=== PATIENT | female | born 1935 | race Caucasian/White ===

== ENCOUNTER → 2017-09-30 | Outpatient (CLI) | payer MEDICARE ==
[~2017-09-30] MED LIST: ASCO500 PO; ATEN25 PO; ATEN50; CHOL10002 PO; CIPR500 PO; CYAN1000 PO; ESTR.625; IBUP600 PO; INDO50 PO; LEVSOD175 PO; LEVSOD75; MULVITMINF PO; Norco 5-325 Ta1 EACH PO; OXYACE5T PO; PRED20 PO; QUIN10; QUIN10 PO; SPIHYD; SPIHYD PO
== END | disposition home or self-care (01) ==
LOC: LAB 17:19 → LAB SHORT 17:19
DX: N39.0 Urinary tract infection, site not specified (principal); R35.0 Frequency of micturition
CPT/HCPCS: 87077; 87086; 87186

== ENCOUNTER 2021-02-14 13:38 | Emergency (ER) | payer MEDICARE, OTHER ==
[~2021-02-14] VITALS: Ht 172.7 cm; Wt 70.3 kg
[~2021-02-14 13:38] MED LIST changes: +ALLO100 PO; +ATEN50 PO; +GABA300 PO; +HYDCHL25 PO
[2021-02-14 14:09] LABS: BASOPHILS ABSOLUTE AUTO 0.01 K/mm3 (0.00-0.23); BASOPHILS PERCENT AUTO 0 % (0-2); EOSINOPHILS ABSOLUTE AUTO 0.01 K/mm3 (0.00-0.68); EOSINOPHILS PERCENT AUTO 0 % (0-6); Hematocrit 43.4 % (33.0-51.0); Hemoglobin 14.8 g/dL (11.5-16.0); IMMATURE GRAN ABSOLUTE AUTO 0.08 K/mm3 (0.00-0.10); IMMATURE GRAN PERCENT AUTO 1 % (0-1); LYMPHOCYTES ABSOLUTE AUTO 1.41 K/mm3 (0.84-5.20); LYMPHOCYTES PERCENT AUTO 12 % (21-46); MONOCYTES ABSOLUTE AUTO 1.11 K/mm3 (0.16-1.47); MONOCYTES PERCENT AUTO 10 % (4-13); Mean Corpuscular HGB 27.2 pg (26.0-34.0); Mean Corpuscular HGB Conc 34.1 g/dL (31.5-36.5); Mean Corpuscular Volume 80 fL (80-100); Mean Platelet Volume 12.3 fL (9.1-12.4); NEUTROPHILS ABSOLUTE AUTO 9.09 K/mm3 (1.96-9.15); NEUTROPHILS PERCENT AUTO 78 % (41-73); Platelet Count 226 K/mm3 (150-400); RDW Coefficient Variation 13.5 % (11.7-14.2); RDW Standard Deviation 38.9 fL (35.1-46.3); Red Blood Cell Count 5.44 M/mm3 (3.80-5.20); White Blood Cell Count 11.71 K/mm3 (4.00-11.30)
[2021-02-14 14:35] LABS: Albumin/Globulin Ratio 0.8 (0.8-1.8); Bilirubin, Total 0.4 mg/dL (0.1-1.0); Bun/Creatinine Ratio 28.4 (12.0-20.0); Calcium, Blood 8.4 mg/dL (8.5-10.1); Creatinine, Blood 1.48 mg/dL (0.40-1.00); Globulin, Blood 3.8 g/dL (2.2-4.0); Potassium, Blood 4.1 mmol/L (3.5-5.5); Total Protein, Blood 6.8 g/dL (6.4-8.2); Troponin I 0.026 ng/mL (0.000-0.040)
[2021-02-14 16:23] LABS: SARS-Cov-2 (COVID-19) PCR, MMC POSITIVE (NEGATIVE)
[2021-02-14 16:33] LABS: Source, Urine Catheter
[2021-02-14 16:40] LABS: Appearance, Urine Hazy (Clear); Bilirubin, Urine Neg (Neg); Blood, Urine 4+ (Neg); Color, Urine Yellow (P-Yellow); Glucose Qualitative, Urine Neg (Neg); Ketones, Urine Neg (Neg); Leukocyte Esterase, Urine 3+ (Neg); Nitrite, Urine Pos (Neg); Protein, Urine 2+ (Neg); Urobilinogen, Urine NORM (Normal); pH, Urine 6.5 (5.0-8.0)
[2021-02-14 16:59] LABS: Bacteria Many /hpf; Red Blood Cells, Urine 0-2 /hpf (0-2); Squamous Epithelial Cells Mod /hpf (Few)
[2021-02-14 19:25] LABS: Calcium, Ionized (POC) 0.99 mmol/L (1.10-1.46); Chloride (POC) 105 mmol/L (98-108); Creatinine (POC) 1.2 mg/dL (0.6-1.0); Glucose (ISTAT POC) 85 mg/dL (70-99); Hemoglobin (POC) 15.3 g/dL (12.0-16.0); Potassium (POC) 3.8 mmol/L (3.5-5.5); Sodium (POC) 137 mmol/L (135-148); Total CO2 (POC) 20 mmol/L (21-32)
[2021-02-14] MEDS ORDERED: CEFP200 PO (19:35)
== END 2021-02-14 20:22 | disposition home or self-care (01) ==
LOC: ER 13:38
PROVIDERS: Emergency Medicine
DX: U07.1 COVID-19 (principal); N39.0 Urinary tract infection, site not specified; N17.9 Acute kidney failure, unspecified; E86.0 Dehydration; R53.1 Weakness; J12.82 Pneumonia due to coronavirus disease 2019; B96.20 Unspecified Escherichia coli [E. coli] as the cause of diseases classified elsewhere; I10 Essential (primary) hypertension; E03.9 Hypothyroidism, unspecified; Z79.890 Hormone replacement therapy; Z79.899 Other long term (current) drug therapy
CPT/HCPCS: 71046; 80047; 80053; 81001; 83690; 84484; 85014; 85025; 87077; 87086; 87186; 93005; 93010; 96365; 99284-25; J0696; J7030; M0243; Q0243; U0004

== ENCOUNTER 2021-05-18 02:05 | Observation (INO) | payer MEDICARE ==
[~2021-05-18] VITALS: Ht 170.2 cm; Wt 79.7 kg
[~2021-05-18 02:05] MED LIST changes: +CEFP200 PO
[2021-05-18 03:15] LABS: BASOPHILS ABSOLUTE AUTO 0.05 K/mm3 (0.00-0.23); BASOPHILS PERCENT AUTO 0 % (0-2); EOSINOPHILS ABSOLUTE AUTO 0.24 K/mm3 (0.00-0.68); EOSINOPHILS PERCENT AUTO 2 % (0-6); Hematocrit 38.3 % (33.0-51.0); Hemoglobin 12.1 g/dL (11.5-16.0); IMMATURE GRAN ABSOLUTE AUTO 0.04 K/mm3 (0.00-0.10); IMMATURE GRAN PERCENT AUTO 0 % (0-1); LYMPHOCYTES PERCENT AUTO 29 % (21-46); MONOCYTES PERCENT AUTO 8 % (4-13); Mean Corpuscular HGB 26.9 pg (26.0-34.0); Mean Corpuscular HGB Conc 31.6 g/dL (31.5-36.5); Mean Corpuscular Volume 85 fL (80-100); Mean Platelet Volume 12.8 fL (9.1-12.4); NEUTROPHILS ABSOLUTE AUTO 7.47 K/mm3 (1.96-9.15); NEUTROPHILS PERCENT AUTO 61 % (41-73); Platelet Count 297 K/mm3 (150-400); RDW Coefficient Variation 14.6 % (11.7-14.2); RDW Standard Deviation 45.8 fL (35.1-46.3); Red Blood Cell Count 4.49 M/mm3 (3.80-5.20)
[2021-05-18 03:28] LABS: Albumin, Blood 2.9 g/dL (3.4-5.0); Albumin/Globulin Ratio 0.9 (0.8-1.8); Bilirubin, Total 0.2 mg/dL (0.1-1.0); Bun/Creatinine Ratio 37.7 (12.0-20.0); Calcium, Blood 8.9 mg/dL (8.5-10.1); Creatinine, Blood 1.67 mg/dL (0.40-1.00); Globulin, Blood 3.2 g/dL (2.2-4.0); Potassium, Blood 4.8 mmol/L (3.5-5.5); Total Protein, Blood 6.1 g/dL (6.4-8.2); Troponin I 0.017 ng/mL (0.000-0.040)
[2021-05-18] MEDS ORDERED: Prinivil10 MG PO (04:07)
[2021-05-18 04:12] LABS: Influenza A, PCR NEGATIVE (NEGATIVE); Influenza B, PCR NEGATIVE (NEGATIVE); Resp Syncytial Virus, PCR NEGATIVE (NEGATIVE); SARS-Cov-2 (COVID-19) PCR, MMC NEGATIVE (NEGATIVE)
--- NOTE | 2021-05-18 06:10 | NUR ---
SHIFT SUMMARY PATIENT TO ROOM @0445 FROM ED. SLID TO BED. PATIENT IS ALERT AND ORIENTED X4. 02 SATS 94% ON RA, LUNGS SOUND CLEAR. HR 20 WITH COMPLETE HB, CONTINUOUS MONITORING WITH ZOLL AT BEDSIDE. UNABLE TO GET BLOOD PRESSURE READING WITH MONITOR, MANUAL BP SHOWS PATIENT IS HYPERTENSIVE SYSTOLIC 150s TO 180s. PATIENT DENIES CP/PRESSURE/DIZZINESS/SOB AT THIS TIME STATES SHE "FEELS GREAT". BOWEL TONES ACTIVE. PATIENT STATES SHE IS INCONTINENT AT TIMES, ABLE TO CALL FOR HELP WITH TOILETING. MINIMAL HELP WITH REPOSITIONING. CALL LIGHT IN REACH. SEE ASSESSMENT FOR MORE DETAIL.
--- NOTE | 2021-05-18 10:49 | NUR ---
UPDATE PT TAKEN TO SECURITIES SETTLEMENT PROCESSOR FOR PACEMAKER PLACEMENT. WILL AWAIT RETURN.
--- NOTE | 2021-05-18 15:41 | NUR ---
UPDATE PT RETURNED FROM THE BUSINESS PARTNER POST PACEMAKER PLACEMENT. PT AWAKE AND ALERT. O2 SATS REMAIN ABOVE 90% ON RA. HR PACED AT 60. BP STABLE. PT DENIES ANY PAIN. WOUND TO LEFT CHEST COVERED WITH PRESSURE DRESSING. RIGHT GROIN WITH VENOUS ACCESS SITE AND CLEAR DRSNG IN PLACE SHOWS NO SIGNS OF BLEEDING OR HEMATOMA. PT EDUCATED ON LEFT ARM RESTRICTIONS. WILL CONTINUE TO MONITOR CLOSELY.
[2021-05-18 16:44] LABS: Source, Urine Catheter
[2021-05-18 16:54] LABS: Appearance, Urine Hazy (Clear); Bilirubin, Urine Neg (Neg); Blood, Urine 5+ (Neg); Color, Urine Yellow (P-Yellow); Glucose Qualitative, Urine Neg (Neg); Ketones, Urine Neg (Neg); Leukocyte Esterase, Urine 2+ (Neg); Nitrite, Urine Neg (Neg); Protein, Urine 1+ (Neg); Specific Gravity, Urine 1.015 (1.003-1.022); Urobilinogen, Urine NORM (Normal)
[2021-05-18 17:11] LABS: Bacteria Mod /hpf; Calcium Oxalate Crystals Few /hpf; Red Blood Cells, Urine 0-2 /hpf (0-2); Squamous Epithelial Cells Few /hpf (Few); Transitional Epithelial Cells Rare /hpf (0-Rare)
--- NOTE | 2021-05-18 17:26 | NUR ---
SHIFT SUMMARY PT ALERT AND ORIENTED. O2 SATS REMAIN ABOVE 90% ON RA. BP STABLE. HR CONTINUES TO BE PACED AT 60. PT COMPLAINED OF PAIN TO LEFT SHOULDER AND MEDICATED PER EMAR. PRESSURE DRSNG STILL IN PLACE WITH NO SIGNS OF BLEEDING OR HEMATOMA. PT FOLLOWING LEFT ARM RESTRICTIONS. PT HAD ONE INCONTINENT VOID THIS SHIFT AND THEN WAS ABLE TO VOID IN THE BEDPAN. PT ABLE TO REPOSITION HERSELF IN BED WITH MINIMAL ASSISTANCE. WILL CONTINUE TO MONITOR CLOSELY AND REPORT TO ONCOMING RN.
--- NOTE | 2021-05-19 02:26 | NUR ---
ASSUME CARE: RECEIVED REPORT FROM ROMINA NORTON. PT RESTING IN BED ON RA AND CONTINUES TO DESAT INT0 THE 60-70%. PER CIERRA SHE HAS DONE THIS SEVERAL TIMES T/O THE SHIFT BUT ALWAYS QUICKLY RECOVERS AND RETURNS TO >90%. PT DENIES A HX OF SLEEP APNEA AND INITALLY REFUSED OXYGEN. SINCE HER APENIC PERIODS SEEM TO BE INCREASING AND SUSTAINING, SPOKE W/ PT AND EDUCATED HER ON THE APNEA AND SHE AGREED TO WEAR 2LNC AND IS CURRENTLY SATING >95%. HER VITALS OTHERWISE ARE WNL AND SHE IS EXPECTED TO BE DISCHARGED LATER TODAY. SEE SHIFT ASSESSMENT FOR DETAILS.
--- NOTE | 2021-05-19 06:27 | NUR ---
SHIFT SUMMARY: ASSUMED CARE OF THIS PT AROUND 0200 AND NO ACUTE EVENTS SINCE THEN. SHE IS RESTING QUIETLY IN BED W/ HER EYES CLOSED AND DENIES PAIN AT THIS TIME. SHE DOES HAVE DISCOMFORT WHEN TURNING/AMBULATING IN HER LEFT SHOULDER AND SHE WAS GIVEN A SLING TO ENCOURAGE/REMIND HER NOT TO USE HER LEFT ARM. PRESSURE DRESSING ON THAT SHOULDER CLEAN, DRY, AND INTACT. SHE WAS PLACED ON 2L NC FOR APENIC EPISODES AND HAS BEEN SATING >90%. WILL PASS ON TO DAY SHIFT RN ABOUT INQUIRING ABOUT SLEEP STUDY. HR AND BP HAVE REMAINED WNL. SHE IS AFEBRILE AND DID NOT HAVE A BM. SHE IS ABLE TO GET UP TO THE BEDSIDE COMMODE W/ 1 ASSIST BUT IS SOMETIMES INCONTIENT. PLAN IS TO D/C HOME TODAY. WILL REPORT TO ONCOMING RN WHEN AVAILABLE.
--- NOTE | 2021-05-19 07:36 | NUR ---
ASSUMED CARE THIS AM PT. RESTING COMFORTABLY IN BED. VSS THIS AM. PT. REPORTS PAIN OF 2/10 TO LEFT SHOULDER BUT DENIES CHEST PAIN. PRESSURE DRESSING REMAINS IN PLACE TO LEFT CHEST WALL AND SLING IN PLACE TO LEFT ARM. REVIEWED PACEMAKER INSTRUCTIONS WITH PT INCLUDING LIMITATIONS TO LEFT ARM MOBILITY AND USE. PT. VERBALIZED UNDERSTANDING. WILL REVIEW AGAIN WITH HAND OUT PRIOR TO DISCHARGE. PT. ABLE TO REPOSITION SELF IN BED, NEEDING ASSISTANCE TO BEDSIDE COMMODE DUE TO LIMITED LEFT ARM USE. CALL LIGHT IN REACH. BED IN LOW POSITION.
--- NOTE | 2021-05-19 09:46 | NUR ---
PT REMAINS UP IN BEDSIDE CHAIR. PER DR. ASHTON PRESSURE DRESSING REMOVED AND PACER SITE REDRESSED. NO HEMATOMA NOTED, STERI STRIPS REMAIN IN PLACE. PLANS FOR DISCHARGE HOME TODAY.
[2021-05-19] MEDS ORDERED: CEPH500 PO (10:18)
[2021-05-19] MEDS ORDERED: OXYC5 PO (10:33)
--- NOTE | 2021-05-19 11:23 | NUR ---
PT REMAINS UP IN BEDSIDE CHAIR, AWAITING DAUGHTER FOR CLOTHES AND RIDE HOME. IVS REMOVED. DISCHARGE INSTRUCTIONS REVIEWED IN DETAIL. NO FURTHER QUESTIONS AT THIS TIME. VSS.
--- NOTE | 2021-05-19 11:30 | NUR ---
PT DISCHARGED TO HOME WITH DAUGHTER. NO ADDITIONAL QUESTIONS PRIOR TO DISCHARGE. SLING PLACED FOR DISCHARGE AND DRESSING REMAINS CDI AFTER IT WAS REPLACED. DISCHARGE INSTRUCTIONS REVIEWED WITH DAUGHTER WELL. PHYSICAL PRESCRIPTION FOR OXYCODONE GIVEN TO PT AND ADDITIONAL MEDS CALLED INTO [facility]. VSS. UPON DISCHARGE. TAKEN VIA WHEEL CHAIR TO EXIT BY ROAD FREIGHT CONDUCTOR.
== END 2021-05-19 11:30 | disposition home or self-care (01) ==
LOC: ER 02:05 → ICUW 02:06
PROVIDERS: Emergency Medicine; ADMIT Internal Medicine
DX: I44.2 Atrioventricular block, complete (principal); R00.1 Bradycardia, unspecified; N17.9 Acute kidney failure, unspecified; I12.9 Hypertensive chronic kidney disease with stage 1 through stage 4 chronic kidney disease, or unspecified chronic kidney disease; N18.30 Chronic kidney disease, stage 3 unspecified; E03.9 Hypothyroidism, unspecified; Z20.822 Contact with and (suspected) exposure to COVID-19
CPT/HCPCS: 0241U; 33208; 33210; 71045; 71046; 80053; 81001; 84443; 84484; 85025; 87077; 87086; 87186; 93005; 93010; 93306; 99152; 99153; A9270; C1769; C1781; C1785; C1894; C1898; J0360; J0461; J0690; J1265; J1644; J1650; J1940; J2250; J2370; J2405; J3010; J7030; J7040

== ENCOUNTER 2022-05-10 15:28 | Emergency (ER) | payer MEDICARE ==
[~2022-05-10] VITALS: Ht 172.7 cm; Wt 72.6 kg
[~2022-05-10 15:28] MED LIST changes: +CEPH500 PO; +OXYC5 PO; +Prinivil10 MG PO
[2022-05-10] MEDS ORDERED: Percocet 5-3251 EACH PO (18:40)
== END 2022-05-10 19:31 | disposition home or self-care (01) ==
LOC: ER 15:28
DX: S49.92XA Unspecified injury of left shoulder and upper arm, initial encounter (principal); M54.50 Low back pain, unspecified; G89.29 Other chronic pain; I10 Essential (primary) hypertension; E03.9 Hypothyroidism, unspecified; Z79.899 Other long term (current) drug therapy; W19.XXXA Unspecified fall, initial encounter
CPT/HCPCS: 72100; 73030; A9270

== ENCOUNTER → 2022-07-04 | Outpatient (CLI) | payer MEDICARE ==
[~2022-07-04] MED LIST changes: +1/2 NS 250ml250 ML; +ACET500 PO; +AMLO5 PO; +C COMPLEX1000 M1 PO; +EUTHYROX150 MC1 PO; +ITRA100 PO; +KRILL OIL 5001 EAC1 PO; +MONDOXYNE NL100 MG PO; +MULVITA PO; +MUPIROCIN1 G1 TOP; +NAPROXEN500 MG PO; +Percocet 5-3251 EACH PO; +VITAMIN D310 MC4 PO; +VITAMIN D5000 UNIT PO
== END | disposition home or self-care (01) ==
LOC: LAB SHORT 15:00 → LAB 15:00
DX: L08.9 Local infection of the skin and subcutaneous tissue, unspecified (principal)
CPT/HCPCS: 87070; 87106; 87205

== ENCOUNTER 2022-07-08 15:23 | Inpatient (IN) | payer MEDICARE, OTHER ==
[~2022-07-08] VITALS: Ht 172.7 cm; Wt 75.9 kg
[~2022-07-08 15:23] MED LIST changes: -1/2 NS 250ml250 ML; -ACET500 PO; -AMLO5 PO; -C COMPLEX1000 M1 PO; -EUTHYROX150 MC1 PO; -ITRA100 PO; -KRILL OIL 5001 EAC1 PO; -MONDOXYNE NL100 MG PO; -MULVITA PO; -MUPIROCIN1 G1 TOP; -NAPROXEN500 MG PO; -VITAMIN D310 MC4 PO; -VITAMIN D5000 UNIT PO
[2022-07-08] MEDS ORDERED: ATEN50 PO (16:04)
[2022-07-08] MEDS ORDERED: AMLO5 PO (16:04)
[2022-07-08] MEDS ORDERED: EUTHYROX150 MC1 PO (16:05)
[2022-07-08] MEDS ORDERED: VITAMIN D310 MC4 PO (16:07)
[2022-07-08] MEDS ORDERED: C COMPLEX1000 M1 PO (16:07)
[2022-07-08 17:00] LABS: BASOPHILS ABSOLUTE AUTO 0.04 K/mm3 (0.00-0.23); BASOPHILS PERCENT AUTO 0 % (0-2); EOSINOPHILS ABSOLUTE AUTO 0.14 K/mm3 (0.00-0.68); EOSINOPHILS PERCENT AUTO 1 % (0-6); Hematocrit 40.3 % (33.0-51.0); Hemoglobin 13.7 g/dL (11.5-16.0); IMMATURE GRAN ABSOLUTE AUTO 0.03 K/mm3 (0.00-0.10); IMMATURE GRAN PERCENT AUTO 0 % (0-1); LYMPHOCYTES ABSOLUTE AUTO 2.53 K/mm3 (0.84-5.20); LYMPHOCYTES PERCENT AUTO 21 % (21-46); MONOCYTES ABSOLUTE AUTO 1.16 K/mm3 (0.16-1.47); MONOCYTES PERCENT AUTO 10 % (4-13); Mean Corpuscular HGB 28.5 pg (26.0-34.0); Mean Corpuscular Volume 84 fL (80-100); Mean Platelet Volume 10.7 fL (9.1-12.4); NEUTROPHILS ABSOLUTE AUTO 8.19 K/mm3 (1.96-9.15); NEUTROPHILS PERCENT AUTO 68 % (41-73); Platelet Count 310 K/mm3 (150-400); RDW Coefficient Variation 14.5 % (11.7-14.2); RDW Standard Deviation 44.3 fL (35.1-46.3); Red Blood Cell Count 4.81 M/mm3 (3.80-5.20); White Blood Cell Count 12.09 K/mm3 (4.00-11.30)
[2022-07-08 17:25] LABS: C-REACTIVE PROTEIN, EXT RANGE 1.08 mg/dL (0.000-0.300)
[2022-07-08 17:27] LABS: Albumin, Blood 3.6 g/dL (3.4-5.0); Bilirubin, Total 0.3 mg/dL (0.1-1.0); Bun/Creatinine Ratio 21.5 (12.0-20.0); Calcium, Blood 9.2 mg/dL (8.5-10.1); Creatinine, Blood 1.07 mg/dL (0.40-1.00); Globulin, Blood 3.6 g/dL (2.2-4.0); Total Protein, Blood 7.2 g/dL (6.4-8.2)
[2022-07-08] MEDS ORDERED: VITAMIN D5000 UNIT PO (21:31)
[2022-07-09 04:44] LABS: BASOPHILS ABSOLUTE AUTO 0.03 K/mm3 (0.00-0.23); BASOPHILS PERCENT AUTO 0 % (0-2); EOSINOPHILS ABSOLUTE AUTO 0.25 K/mm3 (0.00-0.68); EOSINOPHILS PERCENT AUTO 2 % (0-6); Hematocrit 36.6 % (33.0-51.0); Hemoglobin 12.5 g/dL (11.5-16.0); IMMATURE GRAN ABSOLUTE AUTO 0.03 K/mm3 (0.00-0.10); IMMATURE GRAN PERCENT AUTO 0 % (0-1); LYMPHOCYTES ABSOLUTE AUTO 1.82 K/mm3 (0.84-5.20); LYMPHOCYTES PERCENT AUTO 17 % (21-46); MONOCYTES ABSOLUTE AUTO 1.24 K/mm3 (0.16-1.47); MONOCYTES PERCENT AUTO 12 % (4-13); Mean Corpuscular HGB 28.3 pg (26.0-34.0); Mean Corpuscular HGB Conc 34.2 g/dL (31.5-36.5); Mean Corpuscular Volume 83 fL (80-100); Mean Platelet Volume 11.1 fL (9.1-12.4); NEUTROPHILS PERCENT AUTO 68 % (41-73); Platelet Count 272 K/mm3 (150-400); RDW Coefficient Variation 14.3 % (11.7-14.2); RDW Standard Deviation 43.4 fL (35.1-46.3); Red Blood Cell Count 4.42 M/mm3 (3.80-5.20); White Blood Cell Count 10.57 K/mm3 (4.00-11.30)
--- NOTE | 2022-07-09 05:22 | NUR ---
END OF SHIFT REPORT Mrs. Muir was admitted from ED for left hand cellulities. Wound cultures were done and strted on cefepine and vancomycin. Pictures take - left hand measuring [id number], wound base covered in slough. Wound cleaned with wound cleancer and covered with xeroform and form self adheasive pad. Patient refused to take her HCTZ qhs dose and states she was adviced by her primary MD not to take it anymore. She took her AM thyroid table without issues. She had x1 episode of urgency incontince ambulating to the bathroom and advised to call sooner.
[2022-07-09 05:23] LABS: Albumin, Blood 3.1 g/dL (3.4-5.0); Bilirubin, Total 0.5 mg/dL (0.1-1.0); Bun/Creatinine Ratio 19.3 (12.0-20.0); Calcium, Blood 8.9 mg/dL (8.5-10.1); Creatinine, Blood 0.99 mg/dL (0.40-1.00); Globulin, Blood 3.1 g/dL (2.2-4.0); Potassium, Blood 4.2 mmol/L (3.5-5.5); Total Protein, Blood 6.2 g/dL (6.4-8.2)
--- NOTE | 2022-07-09 17:13 | NUR ---
SHIFT SUMMARY PATIENT IS ALERT AND ORIENTED. PATIENT HAS BEEN IND IN ROOM. PATIENT HAS HAD NO ACUTE EVENTS THIS SHIFT. VITAL SIGNS REVIEWED. PATIENT IS TO REMAIN NPO FOR POSSIBLE HAND I/D TONIGHT OR TOMORROW. PATIENT HAS HAD NO COMPLAINTS OF PAIN, NAUSEA, SOB OR VOMITTING. DR RIDDLE AND DR DICKEY ARE CONSULTING ON CASE. BED IN LOWEST AND LOCKED POSITION. CALL LIGHT IN PLACE. WILL MONITOR UNTIL SHIFT CHANGE.
--- NOTE | 2022-07-10 12:30 | NUR ---
ASSUMED CARE OF PT- REPORT COMPLETED WITH ROMINA CRAWLEY. PT SITTING UP AT THE EOB WITH HER LUNCH IN PLACE, DR RIDDLE AT THE BEDSIDE TO PERFORM BIOPSY OF THE AFFECTED HAND. PT ALERT AND ORIENTED, INDEPENDENT IN THE ROOM. WILL CTM.
--- NOTE | 2022-07-10 12:32 | NUR ---
LATE ENTRY: 929: RN RECEIVED REPORT FROM NURSE LOWERY. 12:00: RN GAVE REPORT TO NURSE CANTU.
--- NOTE | 2022-07-10 19:50 | NUR ---
SHIFT SUMMARY- PT HAS HAD NO ACUTE CHANGE T/O THE SHIFT SINCE THIS RN ASSUMED CARE AT 1200. THE PT HAD A BIOPSY DONE BY DR RIDDLE AND C/O PAIN, MEDICATED WITH TYLENOL. PT DENIED ANY FURTHER PAIN AT THIS TIME. PT IN BED WATCHING "POLITICS" SO SHE REQUESTED HER DOOR CLOSED. NO S&S OF DISTRESS AT THE TIME OF SHIFT CHANGE.
[2022-07-10 20:36] LABS: Vancomycin, Trough 8.4 ug/mL (5.0-10.0)
[2022-07-10] MEDS ORDERED: NAPROXEN500 MG PO (22:58)
[2022-07-10] MEDS ORDERED: HYDCHL25 PO (22:58)
[2022-07-10] MEDS ORDERED: MUPIROCIN1 G1 TOP (23:00)
[2022-07-10] MEDS ORDERED: MONDOXYNE NL100 MG PO (23:00)
--- NOTE | 2022-07-11 04:56 | NUR ---
SHIFT SUMMARY PATIENT IS ALERT AND ORIENTED. PATIENT HAS HAD NO ACUTE EVENTS THIS SHIFT. VITAL SIGNS REVIEWED. PATIENT HAS BEEN RESTING ALL SHIFT. PATIENT COMPLAINED OF BACK PAIN, MEDICATED PER EMAR. PATIENT HAS NOT COMPLAINED OF SOB, NAUSEA OR VOMITTING. PATIENT HAS BEEN PLEASENT AND COOPERATIVE WITH CARE. BED IN LOCKED AND LOWEST POSITION. CALL LIGHT IN PLACE. WILL MONITOR UNTIL SHIFT CHANGE.
[2022-07-11 09:11] LABS: HSV-1 DNA Negative (Negative); HSV-2 DNA Negative (Negative)
[2022-07-11 13:31] LABS: BASOPHILS ABSOLUTE AUTO 0.05 K/mm3 (0.00-0.23); BASOPHILS PERCENT AUTO 1 % (0-2); EOSINOPHILS ABSOLUTE AUTO 0.42 K/mm3 (0.00-0.68); EOSINOPHILS PERCENT AUTO 4 % (0-6); Hematocrit 42.6 % (33.0-51.0); IMMATURE GRAN ABSOLUTE AUTO 0.02 K/mm3 (0.00-0.10); IMMATURE GRAN PERCENT AUTO 0 % (0-1); LYMPHOCYTES ABSOLUTE AUTO 2.17 K/mm3 (0.84-5.20); LYMPHOCYTES PERCENT AUTO 21 % (21-46); MONOCYTES PERCENT AUTO 11 % (4-13); Mean Corpuscular HGB 27.9 pg (26.0-34.0); Mean Corpuscular HGB Conc 32.9 g/dL (31.5-36.5); Mean Corpuscular Volume 85 fL (80-100); Mean Platelet Volume 11.1 fL (9.1-12.4); NEUTROPHILS ABSOLUTE AUTO 6.51 K/mm3 (1.96-9.15); NEUTROPHILS PERCENT AUTO 63 % (41-73); Platelet Count 273 K/mm3 (150-400); RDW Coefficient Variation 14.4 % (11.7-14.2); RDW Standard Deviation 44.5 fL (35.1-46.3); Red Blood Cell Count 5.02 M/mm3 (3.80-5.20); White Blood Cell Count 10.27 K/mm3 (4.00-11.30)
--- NOTE | 2022-07-11 19:28 | NUR ---
PATIENT IS ALERT AND ORIENTED AND COOPERATIVE WITH CARE. C/O LEFT HAND PAIN ONLY WHEN BEING TOUCHED. DR. HERNÁNDEZ SAW THE PATIENT THIS SHIFT AND ASKED TO HAVE HER NPO AT MIDNIGHT FOR POSSIBLE PROCEDURE TOMORROW. THE PATIENT'S DAUGHTER WAS AT THE BEDSIDE THIS SHIFT. REPORT GIVEN TO ONCOMING RN
[2022-07-12 04:38] LABS: BASOPHILS ABSOLUTE AUTO 0.04 K/mm3 (0.00-0.23); BASOPHILS PERCENT AUTO 1 % (0-2); EOSINOPHILS ABSOLUTE AUTO 0.46 K/mm3 (0.00-0.68); EOSINOPHILS PERCENT AUTO 5 % (0-6); Hematocrit 35.6 % (33.0-51.0); Hemoglobin 11.7 g/dL (11.5-16.0); IMMATURE GRAN ABSOLUTE AUTO 0.04 K/mm3 (0.00-0.10); IMMATURE GRAN PERCENT AUTO 1 % (0-1); LYMPHOCYTES ABSOLUTE AUTO 1.94 K/mm3 (0.84-5.20); LYMPHOCYTES PERCENT AUTO 23 % (21-46); MONOCYTES ABSOLUTE AUTO 0.96 K/mm3 (0.16-1.47); MONOCYTES PERCENT AUTO 11 % (4-13); Mean Corpuscular HGB 27.5 pg (26.0-34.0); Mean Corpuscular HGB Conc 32.9 g/dL (31.5-36.5); Mean Corpuscular Volume 84 fL (80-100); Mean Platelet Volume 10.9 fL (9.1-12.4); NEUTROPHILS ABSOLUTE AUTO 5.15 K/mm3 (1.96-9.15); NEUTROPHILS PERCENT AUTO 60 % (41-73); Platelet Count 254 K/mm3 (150-400); RDW Coefficient Variation 14.2 % (11.7-14.2); RDW Standard Deviation 43.2 fL (35.1-46.3); Red Blood Cell Count 4.25 M/mm3 (3.80-5.20); White Blood Cell Count 8.59 K/mm3 (4.00-11.30)
[2022-07-12 05:06] LABS: Albumin, Blood 2.6 g/dL (3.4-5.0); Albumin/Globulin Ratio 0.8 (0.8-1.8); Bilirubin, Total 0.4 mg/dL (0.1-1.0); Bun/Creatinine Ratio 28.8 (12.0-20.0); Calcium, Blood 8.6 mg/dL (8.5-10.1); Creatinine, Blood 1.04 mg/dL (0.40-1.00); Globulin, Blood 3.2 g/dL (2.2-4.0); Total Protein, Blood 5.8 g/dL (6.4-8.2)
--- NOTE | 2022-07-12 05:45 | NUR ---
STONE CUTTER SUMMARY: A&Ox4. PLEASANT AND COOPERATIVE WITH CARE. INDEPENDENT WITHIN ROOM. AREA PROXIMAL TO WOUND MARKED WITH MARKER AND HAS NOT SPREAD SINCE BEGINNING OF SHIFT. ABx ADMINISTERED. APAP ADMINISTERED x1 BACK PAIN. NPO SINCE MIDNIGHT IN ANTICIPATION OF POSSIBLE I&D TODAY; SURGICAL PACKET IN BINDER. DID HAVE ONE EPISODE OF CONFUSION DURING THE NIGHT BUT WAS EASILY REDIRECTED AND KNEW LATER ONE THAT SHE HAD BEEN CONFUSED AND BELIEVES SHE MAY HAVE BEEN HAVING A DREAM. LABS DRAWNT HIS MORNING; NO CRITICAL VALUES RECEIVED. WILL REPORT TO ONCOMING RN.
--- NOTE | 2022-07-12 17:22 | NUR ---
EVENING NOTE PT AWAITING HER DAUGHTER. DAUGHTER IS BRINGING DINNER AND GOING TO WATCH THE FOOTBALL GAME TOGETHER. LEFT HAND WOUND CD&I. NO DEBRIDEMENT TODAY. VSS. UP AD ANDREW. GAIT STEADY. DENIED NEED FOR PAIN MEDICATION. BED LOW AND LOCKED. CALL LIGHT WITH IN REACH. CONTINUE POC.
[2022-07-12 20:33] LABS: Vancomycin, Trough 11.5 ug/mL (5.0-10.0)
[2022-07-13 06:23] LABS: BASOPHILS ABSOLUTE AUTO 0.03 K/mm3 (0.00-0.23); BASOPHILS PERCENT AUTO 0 % (0-2); EOSINOPHILS ABSOLUTE AUTO 0.46 K/mm3 (0.00-0.68); EOSINOPHILS PERCENT AUTO 5 % (0-6); Hematocrit 34.4 % (33.0-51.0); Hemoglobin 11.3 g/dL (11.5-16.0); IMMATURE GRAN ABSOLUTE AUTO 0.03 K/mm3 (0.00-0.10); IMMATURE GRAN PERCENT AUTO 0 % (0-1); LYMPHOCYTES ABSOLUTE AUTO 1.97 K/mm3 (0.84-5.20); LYMPHOCYTES PERCENT AUTO 22 % (21-46); MONOCYTES ABSOLUTE AUTO 0.94 K/mm3 (0.16-1.47); MONOCYTES PERCENT AUTO 10 % (4-13); Mean Corpuscular HGB Conc 32.8 g/dL (31.5-36.5); Mean Corpuscular Volume 85 fL (80-100); Mean Platelet Volume 11.5 fL (9.1-12.4); NEUTROPHILS ABSOLUTE AUTO 5.64 K/mm3 (1.96-9.15); NEUTROPHILS PERCENT AUTO 62 % (41-73); Platelet Count 267 K/mm3 (150-400); RDW Coefficient Variation 14.2 % (11.7-14.2); RDW Standard Deviation 44.3 fL (35.1-46.3); Red Blood Cell Count 4.03 M/mm3 (3.80-5.20); White Blood Cell Count 9.07 K/mm3 (4.00-11.30)
--- NOTE | 2022-07-13 06:31 | NUR ---
SPINNING ROOM WORKER SUMMARY: A&Ox4. PLEASANT AND COOPERATIVE WITH MOST CARE. REQUESTED WOUND CARE NOT BE DONE D/T PAIN FROM PEROXIDE RINSE. HAD FAMILY IN MOST OF YESTERDAY AND SHE WAS TIRED AND SLEPT MAJORITY OF THE NIGHT OPPOSED TO NIGHT BEFORE IN WHICH SHE SLEPT VERY LITTLE. REQUESTED PRN APAP x1 FOR C / O BACK PAIN WHICH IS A CHRONIC ISSUE FOR HER. LABS DRAWN THIS AM. WILL REPORT TO ONCOMING RN.
[2022-07-13 07:04] LABS: Albumin, Blood 2.5 g/dL (3.4-5.0); Albumin/Globulin Ratio 0.8 (0.8-1.8); Bilirubin, Total 0.2 mg/dL (0.1-1.0); Bun/Creatinine Ratio 31.4 (12.0-20.0); Calcium, Blood 8.3 mg/dL (8.5-10.1); Creatinine, Blood 1.02 mg/dL (0.40-1.00); Globulin, Blood 3.1 g/dL (2.2-4.0); Total Protein, Blood 5.6 g/dL (6.4-8.2)
--- NOTE | 2022-07-13 11:00 | NUR ---
WOUND CARE WOUND CARE DONE BY DR LAI THIS MORNING. CONTINUE POC.
--- NOTE | 2022-07-13 17:27 | NUR ---
EVENING NOTE PT ALERT AND ORIENTED. JASONHAS BEEN ENJOYING A RESTFUL THURSDAY. FREQUENTS NAPS. SHE SAYS HER STOMACH IS "ICHy'. NO NUASEA OR DIARRHEA REPORTED. SHE HAS ATE HER MEALS. VSS. LEFT HAND WOUND CARE DONE BY DR EPSTEIN. UP AD ANDREW IN ROOM. LEFT AC IV LEAKED. RESTARTED RIGHT WRIST. LEFT UE WITH A HARD RED ROPE LIKE LINE RUNNING UP THE TOP OF HER ARM. DR RIDDLE THINKS IT'S A LYMPH TRACK. IT'S NOW EXTENDING UP TO MID BICEPT. IT'S WARM BUT NOT TENDER. ELEVATED ON A PILLOW. HER FINGERS ARE SWOLLEN 2+. DID ROM AND EDEAM MASSAGE TO HER FINGERS. TAUGHT HER HOW TO MASSAGE HER FINGERS TO REDUCE THE SWELLING. DAUGHTER AT BEDSIDE WATCHING FOOTBALL WITH HER. CONTINUE POC.
--- NOTE | 2022-07-14 05:54 | NUR ---
BRIDGE CARPENTER SUMMARY: A&Ox4. PLEASANT AND COOPERATIVE WITH CARE. CALLS APPROPRIATELY AND IS ABLE TO COMMUNICATE NEEDS EFFECTIVELY. STRUGGLING THIS SHIFT; FEELS THOUGH SHE DOES NOT HAVE ANY ANSWERS TO WHAT IS GOING ON WITH HER HAND, BUT IS EVEN MORE CONCERNED WITH THE "LINE OF BUMPS" SEEMINGLY WORSENING UP HER ARM. HOPING DOCTORS WILL CONSIDER DOING MORE IMAGING SHE IS CONCERNED THERE IS MORE GOING ON THAN A BUG BITE PREVIOUSLY DISCUSSED WITH THE PROVIDER. SPENT SOME TIME WITH PATIENT EXPLAINING RESULTS RECEIVED SO FAR AND DISCUSSING RESULTS THAT ARE STILL PENDING. SHE WOULD LIKE TO DISCUSS THIS FURTHER WITH HER PROVIDERS. LABS DRAWN THIS AM. NO CRITICAL VALUES REPORTED AT THIS TIME. WILL REPORT TO ONCOMING RN.
--- NOTE | 2022-07-14 11:04 | NUR ---
RN NOTE MS CARREON IS A&OX4. LEFT HAND CLEANSED AND CHANGED THIS MORNING. MS CARREON SAID IT LOOKS BETTER THAN IT HAS. MINIMAL EXUDATE, GRANULATING TISSUE WITH SOME AREAS OF YELLOW TISSUE. RED BUMPS UP TO LEFT ELBOW FROM LEFT HAND WOUND. MS CARREON SAID THE RED BUMPS UP HER ARM FEEL HOT TO HER, BUT NOT PAINFUL. SHE HAS BEEN UP INDEPENDENTLY IN THE ROOM AND DOING LEG EXERCISES. SHE SAID SHE HAS HAD RIGHT LEG WEAKNESS SINCE 2007 AND WALKS WITH A WALKER. C/O BACKACHE THIS AM, TYLENOL GIVEN. BED LOW, CALL LIGHT IN REACH.
--- NOTE | 2022-07-14 16:25 | NUR ---
SHIFT SUMMARY MS CARREON IS HAS LEFT HAND WOUND DRESSING WHICH WAS REDRESSED THIS MORNING. LEFT HAND SWELLING AND LINE OF RED, WARM BUMPS UP TO THE ELBOW. SHE SAID THAT THE HAND WOUND LOOKS MUCH IMPROVED. UP INDPENDENTLY, STEADY GAIT WITH WALKER. +NEUROPATHY AND RIGHT LEG CHRONIC WEAKNESS. SHE HAS NOT REQUESTED PAIN MEDS FOR HER HAND TODAY. BED LOW, CALL LIGHT IN REACH.
--- NOTE | 2022-07-15 04:50 | NUR ---
BURRER OPERATOR SUMMARY NO ACUTE EVENTS. A/OX4. PLEASANT AND COOPERATIVE. DRESSING TO LEFT HAND CHANGED AT 2200. PT REPORTS IT IS FEELING/LOOKING BETTER. REDNESS, BUMPS, SWELLING TRAVELING UP THE LEFT ARM; ALL WITHIN THE MARKED LINES. PT IS INDEPENDENT IN ROOM W/FWW. PT HAS SOME URINARY INCONTINENCE--MOSTLY INDEPENDENT WITH CARE; WILL MAKE NEEDS KNOWN. PT CALLS APPROPRIATELY; CALL LIGHT ACCESSIBLE. BED LOCKED/LOW.
[2022-07-15 07:10] LABS: BASOPHILS ABSOLUTE AUTO 0.05 K/mm3 (0.00-0.23); BASOPHILS PERCENT AUTO 1 % (0-2); EOSINOPHILS ABSOLUTE AUTO 0.39 K/mm3 (0.00-0.68); EOSINOPHILS PERCENT AUTO 5 % (0-6); Hemoglobin 11.4 g/dL (11.5-16.0); IMMATURE GRAN ABSOLUTE AUTO 0.02 K/mm3 (0.00-0.10); IMMATURE GRAN PERCENT AUTO 0 % (0-1); LYMPHOCYTES ABSOLUTE AUTO 1.88 K/mm3 (0.84-5.20); LYMPHOCYTES PERCENT AUTO 22 % (21-46); MONOCYTES ABSOLUTE AUTO 0.79 K/mm3 (0.16-1.47); MONOCYTES PERCENT AUTO 9 % (4-13); Mean Corpuscular HGB 28.3 pg (26.0-34.0); Mean Corpuscular HGB Conc 33.5 g/dL (31.5-36.5); Mean Corpuscular Volume 84 fL (80-100); Mean Platelet Volume 11.1 fL (9.1-12.4); NEUTROPHILS ABSOLUTE AUTO 5.43 K/mm3 (1.96-9.15); NEUTROPHILS PERCENT AUTO 63 % (41-73); Platelet Count 252 K/mm3 (150-400); RDW Coefficient Variation 13.9 % (11.7-14.2); RDW Standard Deviation 43.5 fL (35.1-46.3); Red Blood Cell Count 4.03 M/mm3 (3.80-5.20); White Blood Cell Count 8.56 K/mm3 (4.00-11.30)
[2022-07-15 07:41] LABS: Albumin, Blood 2.6 g/dL (3.4-5.0); Albumin/Globulin Ratio 0.8 (0.8-1.8); Bilirubin, Total 0.4 mg/dL (0.1-1.0); Bun/Creatinine Ratio 25.7 (12.0-20.0); Calcium, Blood 8.8 mg/dL (8.5-10.1); Creatinine, Blood 0.97 mg/dL (0.40-1.00); Globulin, Blood 3.2 g/dL (2.2-4.0); Total Protein, Blood 5.8 g/dL (6.4-8.2)
--- NOTE | 2022-07-15 18:26 | NUR ---
SHIFT SUMMARY: PT A7O X4, PLEASANT AND COOPERATIVE WITH CARE. PT AMBULATES IN THE ROOM INDEPENDANTLY. PT RECEVIED WOUND CARE TO HER LEFT HAND AND ARM. PT RECEVIED IV ABX W/O ADVERSE REACTIONS OR S/S OF DISCOMFORT. PT IV LEAKING, DR. STARKEY CONTACTED AND A REQUEST FOR POWER GLIDE BE PLACED. PT HAD MILD PAIN DURING THE SHIFT, PT MEDICATED PER EMAR PROTOCOL. PT UP ON SIDE OF BED FOR ALL MEALS. PT IN GOOD SPIRIT AND PLEASANT THROUGHOUT THE SHIFT. PT HAD A VISITOR AT BEDSIDE DURIG THE SHIFT. PT IN BED WITH CALL LIGHT WITHIN REACH.
[2022-07-15 21:07] LABS: Vancomycin, Trough 12.8 ug/mL (5.0-10.0)
--- NOTE | 2022-07-16 04:58 | NUR ---
CONFERENCE RESERVATIONIST SUMMARY NO ACUTE CHANGES. PT A/OX4. PLEASANT AND COOPERATIVE. NEW LAURYN IV POWLER GLIDE PLACED AT THE BEGINNING OF SHIFT. IV ABOX RCVD W/O ADVERSE REACTIONS. DRESSING TO LEFT ARM CDI. PT INDEPENDENT IN ROOM AND ABLE TO MAKE NEEDS KNOWN. CALLS APPROPRIATELY. PT DID REPORT DIFFICULTY SLEEPING AND MILD DISCOMFORT. ADMIN TYLENOL PER EMAR. CALL LIGHT ACCESSIBLE. BED LOCKED/LOW.
--- NOTE | 2022-07-16 17:29 | NUR ---
SUMMARY- PT A/O X4, INDEPENDANT IN ROOM, VERY STEADY ON FEET. TOLERATING FOOD AND FLUIDS. L ARM CELLULITIS SEEMS TO BE RECEDING, REMAINS RED/PURPLE SPLOTCHES OVER RAISED HARD AREAS, REMARKED WITH SHARPEE. DRESSING TO L HAND CLEANSED AND CHANGED. PT WILL BE STAYING FOR A FEW MORE DAYS FOR IV ABX
--- NOTE | 2022-07-17 04:46 | NUR ---
SHIFT SUMMARY; NO ACUTE CHANGES OVERNIGHT. THE PT RESTED IN THE BED T/O THE NIGHT. THE PT USED THE CALL LIGHT APPROPRIATELY. THE PT IS INDEPENDENT TO THE BATHROOM. THE PT GOT OUT OF BED A FEW TIMES TO DO SOME EXERCISES, SUCH SQUATS, HEEL ROLLS AND OTHER STRETCHES. THE PT DECLINES TO WEAR HER SCD'S THIS EVENING. I DID A DRESSING CHANGE ON THE PTS L HAND AROUND 0000. THE PT DENIES ANY PAIN TO THE HAND AT REST, BUT THE WOUND IS PAINFUL TO THE TOUCH DURING DRESSING CHANGES. PT DENIES ANY SOB, CHEST PAIN/PRESSURE THIS SHIFT. THE PT REQUEST PRN TYLENOL ONCE THIS SHIFT FOR SOME DULL BACK PAIN. CURRENTLY THE PT IS RESTING IN BED WITH THE BED IN THE LOWEST POSITION AND THE CALL LIGHT AT BEDSIDE.
--- NOTE | 2022-07-17 18:12 | NUR ---
SHIFT SUMMARY PT AXO, PLEASANT AND COOPERATIVE WITH CARE. DRESSING CHANGED AT 1200 PER ORDERS. PT TOLERATED WELL. PT DENIES PAIN AT ALL TIMES UNLESS HER HAND IS BEING TOUCHED. VSS. NO ACUTE CHANGES THIS SHIFT. PT UP AD ANDREW IN ROOM. BED IN LOW POSITION, CALL LIGHT WITHIN REACH.
--- NOTE | 2022-07-18 04:29 | NUR ---
SHIFT SUMMARY; NO ACUTE CHANGES OVERNIGHT. THE PT RESTED IN BED T/O THE NIGHT. THE PT IS AXO X4 AND INDEPENDENT IN THE ROOM. I DID A DRESSING CHANGE ON THE PTS LEFT HAND WOUND AROUND 0200, THE PTS HAND IS VERY TENDER WITH TOUCH. THE PT DENIES ANY PAIN, SOB OR CHEST PAIN/PRESSURE T/O THE SHIFT. CURRENTLY THE PT IS RESTING IN BED WITH THE BED IN THE LOWEST POSITION AND THE CALL LIGHT AT BEDSIDE.
--- NOTE | 2022-07-18 16:27 | NUR ---
RN NOTE VERENICE ELEVATED. CHECKED MANUALLY AFTER RESTING ~3 MINUTES AND BP 180/90. DR STARKEY CALLED AND INFORMED. PT HAS HISTORY OF BP BEING WELL CONTROLLED AND IS ASYMPTOMATIC. DR STARKEY REQUESTED REPEAT BP AFTER 10 INUTES OF REST.
[2022-07-18] MEDS ORDERED: 1/2 NS 250ml250 ML (17:59)
[2022-07-18] MEDS ORDERED: ITRA100 PO (17:59)
--- NOTE | 2022-07-18 18:33 | NUR ---
DISCHARGE NOTE MS CARREON WAS DISCHARGED FROM [facility] AT 1822HRS. POWERGLIDE CATHETER REMOVED INTACT. GIVEN ITRACONAZOLE 200MG PO PRIOR TO DISCHARGE. SHE VERBALISED GOOD UNDERSTANDING OF WRITTEN AND VERBAL DISCHARGE INSTRUCTIONS. LEFT HAND WAS REDRESSED, PHOTO PLACED IN CHART. WOUND CARE REVIEWED WITH PT AND HER DAUGHTER. PT HAS AN APPT WITH WOUND CARE CLINIC ON THURSDAY AT 0730. EPISODE OF HTN TODAY, NOT MEDICATED, RECHECKED AFTER REST AT 162/84. DR STARKEY AWARE. WHEELCHAIR RIDE TO HER CAR, SHE IS DRIVING HERSELF HOME AND HER DAUGHTER IS WAITING FOR HER AT HOME. STABLE CONDITION ON DISCHARGE HOME.
[2022-07-23] MEDS ORDERED: VITAMIN D5000 UNIT PO (09:44)
[2022-07-23] MEDS ORDERED: KRILL OIL 5001 EAC1 PO (09:45)
[2022-07-23] MEDS ORDERED: MULVITA PO (09:45)
[2022-07-23] MEDS ORDERED: ASCO500 PO (09:45)
[2022-07-23] MEDS ORDERED: ACET500 PO (09:46)
== END 2022-07-18 18:24 | disposition home or self-care (01) | DRG 603 ==
LOC: ER 15:23 → MEDS 22:03
PROVIDERS: Dermatology; Family Medicine; Internal Medicine; Physician Assistant; ADMIT Internal Medicine
PROC: 0HBGXZX Excision of Left Hand Skin, External Approach, Diagnostic (ICD-10-PCS; principal; 2022-07-10)
DX: L03.114 Cellulitis of left upper limb (principal); L98.499 Non-pressure chronic ulcer of skin of other sites with unspecified severity; Z28.21 Immunization not carried out because of patient refusal; I10 Essential (primary) hypertension; E03.9 Hypothyroidism, unspecified; M54.9 Dorsalgia, unspecified; G89.29 Other chronic pain; Z95.0 Presence of cardiac pacemaker; Z79.890 Hormone replacement therapy; Z79.899 Other long term (current) drug therapy
CPT/HCPCS: 36415; 73130; 73201; 80053; 80202; 82565; 83605; 85025; 86140; 87070; 87071; 87075; 87205; 87529; 87798; 88305; 88312; 93005; 93010; 96365; 97110; 97161; 99285-25; A9270; C1751; J0690; J1450; J1650; J2185; J3370; J7050; Q9967

== ENCOUNTER 2022-07-30 00:33 | Day surgery (SDC) | payer MEDICARE, OTHER ==
[~2022-07-30 00:33] MED LIST changes: +1/2 NS 250ml250 ML; +ACET500 PO; +AMLO5 PO; +C COMPLEX1000 M1 PO; +EUTHYROX150 MC1 PO; +ITRA100 PO; +KRILL OIL 5001 EAC1 PO; +MONDOXYNE NL100 MG PO; +MULVITA PO; +MUPIROCIN1 G1 TOP; +NAPROXEN500 MG PO; +VITAMIN D310 MC4 PO; +VITAMIN D5000 UNIT PO
== END 2022-07-30 22:45 | disposition home or self-care (01) ==
LOC: WOUND 00:33
DX: L03.114 Cellulitis of left upper limb (principal); B42.1 Lymphocutaneous sporotrichosis
CPT/HCPCS: A9270; G0463

== ENCOUNTER 2022-08-06 08:00 | Day surgery (SDC) | payer MEDICARE, OTHER | END 2022-08-06 23:59 | disposition home or self-care (01) | LOC: WOUND 08:00 | DX: L03.114 Cellulitis of left upper limb (principal); B42.1 Lymphocutaneous sporotrichosis | CPT/HCPCS: G0463 ==

== ENCOUNTER 2022-08-20 00:51 | Day surgery (SDC) | payer MEDICARE, OTHER | END 2022-08-20 22:44 | disposition home or self-care (01) | LOC: WOUND 00:51 | DX: Z09 Encounter for follow-up examination after completed treatment for conditions other than malignant neoplasm (principal) | CPT/HCPCS: G0463 ==

== ENCOUNTER → 2022-09-02 | Outpatient (CLI) | payer MEDICARE, OTHER | LOC: LAB SHORT 08:00 → LAB 08:00 | DX: L08.9 Local infection of the skin and subcutaneous tissue, unspecified (principal) | CPT/HCPCS: 88312 ==

== ENCOUNTER → 2022-09-02 | Outpatient (CLI) | payer MEDICARE, OTHER | LOC: LAB SHORT 10:30 → LAB 10:30 | DX: B42.1 Lymphocutaneous sporotrichosis (principal) | CPT/HCPCS: 87102 ==

== ENCOUNTER → 2022-10-10 | Outpatient (CLI) | payer MEDICARE, OTHER | END | disposition home or self-care (01) | LOC: LAB 17:26 → LAB SHORT 17:26 | DX: L08.9 Local infection of the skin and subcutaneous tissue, unspecified (principal); D48.5 Neoplasm of uncertain behavior of skin | CPT/HCPCS: 87070; 87205 ==

== ENCOUNTER 2022-12-27 06:54 | Emergency (ER) | payer MEDICARE, OTHER ==
[~2022-12-27] VITALS: Ht 172.7 cm; Wt 73.5 kg
[2022-12-27] MEDS ORDERED: ELIQUIS5 M3 PO (07:10)
[2022-12-27 07:21] LABS: BASOPHILS ABSOLUTE AUTO 0.05 K/mm3 (0.00-0.23); BASOPHILS PERCENT AUTO 1 % (0-2); EOSINOPHILS ABSOLUTE AUTO 0.28 K/mm3 (0.00-0.68); EOSINOPHILS PERCENT AUTO 3 % (0-6); Hematocrit 39.2 % (33.0-51.0); Hemoglobin 12.9 g/dL (11.5-16.0); IMMATURE GRAN ABSOLUTE AUTO 0.04 K/mm3 (0.00-0.10); IMMATURE GRAN PERCENT AUTO 0 % (0-1); LYMPHOCYTES PERCENT AUTO 31 % (21-46); MONOCYTES ABSOLUTE AUTO 0.84 K/mm3 (0.16-1.47); MONOCYTES PERCENT AUTO 9 % (4-13); Mean Corpuscular HGB 26.9 pg (26.0-34.0); Mean Corpuscular HGB Conc 32.9 g/dL (31.5-36.5); Mean Corpuscular Volume 82 fL (80-100); Mean Platelet Volume 11.2 fL (9.1-12.4); NEUTROPHILS ABSOLUTE AUTO 5.41 K/mm3 (1.96-9.15); NEUTROPHILS PERCENT AUTO 56 % (41-73); Platelet Count 256 K/mm3 (150-400); RDW Coefficient Variation 16.8 % (11.7-14.2); RDW Standard Deviation 49.8 fL (35.1-46.3); Red Blood Cell Count 4.79 M/mm3 (3.80-5.20); White Blood Cell Count 9.62 K/mm3 (4.00-11.30)
[2022-12-27 07:44] LABS: Albumin, Blood 3.3 g/dL (3.4-5.0); Albumin/Globulin Ratio 1.1 (0.8-1.8); Bilirubin, Total 0.2 mg/dL (0.1-1.0); Bun/Creatinine Ratio 20.5 (12.0-20.0); Calcium, Blood 9.3 mg/dL (8.5-10.1); Creatinine, Blood 1.51 mg/dL (0.40-1.00); Globulin, Blood 3.1 g/dL (2.2-4.0); Potassium, Blood 4.6 mmol/L (3.5-5.5); Total Protein, Blood 6.4 g/dL (6.4-8.2)
[2022-12-27 10:00] VITALS: BP 173/160
== END 2022-12-27 10:18 | disposition home or self-care (01) ==
LOC: ER 06:54
PROVIDERS: Emergency Medicine
DX: R07.9 Chest pain, unspecified (principal); I10 Essential (primary) hypertension; E03.9 Hypothyroidism, unspecified; Z95.0 Presence of cardiac pacemaker; I48.91 Unspecified atrial fibrillation; Z79.01 Long term (current) use of anticoagulants; Z79.899 Other long term (current) drug therapy
CPT/HCPCS: 71045; 80053; 84484; 85025; 93005; 93010; 99285-25

== ENCOUNTER 2023-01-13 10:04 | Emergency (ER) | payer OTHER, MEDICARE ==
[~2023-01-13] VITALS: Ht 172.7 cm; Wt 73.5 kg
[2023-01-13 10:04] VITALS: BP 139/87
[~2023-01-13 10:04] MED LIST changes: +ELIQUIS5 M3 PO
[2023-01-13 10:39] LABS: BASOPHILS ABSOLUTE AUTO 0.03 K/mm3 (0.00-0.23); BASOPHILS PERCENT AUTO 0 % (0-2); EOSINOPHILS PERCENT AUTO 2 % (0-6); Hematocrit 37.5 % (33.0-51.0); Hemoglobin 12.3 g/dL (11.5-16.0); IMMATURE GRAN ABSOLUTE AUTO 0.08 K/mm3 (0.00-0.10); IMMATURE GRAN PERCENT AUTO 1 % (0-1); LYMPHOCYTES ABSOLUTE AUTO 3.49 K/mm3 (0.84-5.20); LYMPHOCYTES PERCENT AUTO 38 % (21-46); MONOCYTES ABSOLUTE AUTO 0.59 K/mm3 (0.16-1.47); MONOCYTES PERCENT AUTO 6 % (4-13); Mean Corpuscular HGB 27.4 pg (26.0-34.0); Mean Corpuscular HGB Conc 32.8 g/dL (31.5-36.5); Mean Corpuscular Volume 84 fL (80-100); Mean Platelet Volume 12.1 fL (9.1-12.4); NEUTROPHILS ABSOLUTE AUTO 4.83 K/mm3 (1.96-9.15); NEUTROPHILS PERCENT AUTO 52 % (41-73); Platelet Count 283 K/mm3 (150-400); RDW Standard Deviation 51.3 fL (35.1-46.3); Red Blood Cell Count 4.49 M/mm3 (3.80-5.20); White Blood Cell Count 9.22 K/mm3 (4.00-11.30)
[2023-01-13 10:43] LABS: Alanine Aminotransfer (ALT/SGP 38 U/L (12-78); Albumin, Blood 3.4 g/dL (3.4-5.0); Albumin/Globulin Ratio 1.3 (0.8-1.8); Alk Phos 85 U/L (50-136); Anion Gap 8 mmol/L (6-16); Aspartate Aminotrans (AST/SGOT 72 U/L (12-37); Bilirubin, Total 0.3 mg/dL (0.1-1.0); Blood Urea Nitrogen 29 mg/dL (8-24); Bun/Creatinine Ratio 26.4 (12.0-20.0); CO2, Blood 24 mmol/L (21-32); Chloride, Blood 111 mmol/L (98-108); Ethanol (Alcohol), Blood, Med <3 mg/dL; Globulin, Blood 2.7 g/dL (2.2-4.0); Glomerular Filtration Rate 48 (60-); Glucose, Blood 189 mg/dL (70-99); Potassium, Blood 4.3 mmol/L (3.5-5.5); Sodium, Blood 143 mmol/L (136-145); Total Protein, Blood 6.1 g/dL (6.4-8.2)
[2023-01-13 10:46] LABS: International Normalized Ratio 1.08; Prothrombin Time Results 11.3 Sec (9.7-11.5)
[2023-01-13] MEDS ORDERED: EUTHYROX175 MC1 PO (11:14)
== END 2023-01-13 12:20 | disposition short-term general hospital (02) ==
LOC: ER 10:04
PROVIDERS: Student in an Organized Health Care Education/Training Program
DX: S22.42XA Multiple fractures of ribs, left side, initial encounter for closed fracture (principal); S12.121A Other nondisplaced dens fracture, initial encounter for closed fracture; S22.089A Unspecified fracture of T11-T12 vertebra, initial encounter for closed fracture; S36.039A Unspecified laceration of spleen, initial encounter; V43.52XA Car driver injured in collision with other type car in traffic accident, initial encounter; Z79.899 Other long term (current) drug therapy; I10 Essential (primary) hypertension; E03.9 Hypothyroidism, unspecified
CPT/HCPCS: 70450; 71260; 72125; 74177; 80053; 83605; 83690; 85025; 85610; 86850; 86900; 86901; 93005; 93010; 96361; 96374-59; 96375-59; 99285-25; A9270; G0480; J2270; J3010; J7030; Q9967

== ENCOUNTER → 2023-01-22 | Outpatient (CLI) | payer MEDICARE, OTHER ==
[~2023-01-22] MED LIST changes: +EUTHYROX175 MC1 PO
== END | disposition home or self-care (01) ==
LOC: LAB SHORT 18:06 → LAB 18:06
DX: R30.0 Dysuria (principal)
CPT/HCPCS: 87077; 87086; 87186

== ENCOUNTER → 2023-02-05 | Outpatient (CLI) | payer MEDICARE, OTHER | END | disposition home or self-care (01) | LOC: LAB 17:36 → LAB SHORT 17:36 | DX: R30.0 Dysuria (principal) | CPT/HCPCS: 87086 ==

== ENCOUNTER 2023-04-08 12:44 | Inpatient (IN) | payer MEDICARE, OTHER ==
[~2023-04-08] VITALS: Ht 175.3 cm; Wt 71.2 kg
[2023-04-08 14:28] LABS: Source, Urine Straight Cath
[2023-04-08 14:33] LABS: BASOPHILS ABSOLUTE AUTO 0.02 K/mm3 (0.00-0.23); BASOPHILS PERCENT AUTO 0 % (0-2); EOSINOPHILS PERCENT AUTO 0 % (0-6); Hematocrit 38.2 % (33.0-51.0); Hemoglobin 12.4 g/dL (11.5-16.0); IMMATURE GRAN ABSOLUTE AUTO 0.07 K/mm3 (0.00-0.10); IMMATURE GRAN PERCENT AUTO 0 % (0-1); LYMPHOCYTES ABSOLUTE AUTO 0.97 K/mm3 (0.84-5.20); LYMPHOCYTES PERCENT AUTO 5 % (21-46); MONOCYTES ABSOLUTE AUTO 1.37 K/mm3 (0.16-1.47); MONOCYTES PERCENT AUTO 8 % (4-13); Mean Corpuscular HGB 26.1 pg (26.0-34.0); Mean Corpuscular HGB Conc 32.5 g/dL (31.5-36.5); Mean Corpuscular Volume 80 fL (80-100); Mean Platelet Volume 12.4 fL (9.1-12.4); NEUTROPHILS ABSOLUTE AUTO 15.43 K/mm3 (1.96-9.15); NEUTROPHILS PERCENT AUTO 86 % (41-73); Platelet Count 268 K/mm3 (150-400); RDW Coefficient Variation 14.8 % (11.7-14.2); RDW Standard Deviation 43.6 fL (35.1-46.3); Red Blood Cell Count 4.75 M/mm3 (3.80-5.20); White Blood Cell Count 17.86 K/mm3 (4.00-11.30)
[2023-04-08 14:45] LABS: Albumin, Blood 2.9 g/dL (3.4-5.0); Albumin/Globulin Ratio 0.9 (0.8-1.8); Bilirubin, Total 0.5 mg/dL (0.1-1.0); Calcium, Blood 8.9 mg/dL (8.5-10.1); Globulin, Blood 3.4 g/dL (2.2-4.0); Potassium, Blood 4.5 mmol/L (3.5-5.5); Total Protein, Blood 6.3 g/dL (6.4-8.2)
[2023-04-08 14:56] LABS: Bilirubin, Urine Neg (Neg); Blood, Urine 2+ (Neg); Glucose Qualitative, Urine Neg (Neg); Ketones, Urine Neg (Neg); Leukocyte Esterase, Urine Neg (Neg); Nitrite, Urine Neg (Neg); Protein, Urine 2+ (Neg); Specific Gravity, Urine 1.025 (1.003-1.022); Urobilinogen, Urine NORM (Normal)
[2023-04-08 15:16] LABS: Magnesium, Blood 1.5 mg/dL (1.6-2.4); Thyroid Stimulating Hormone 0.01 uIU/mL (0.360-4.800)
[2023-04-08 15:43] LABS: Appearance, Urine Hazy (Clear); Color, Urine Yellow (P-Yellow)
[2023-04-08 15:44] LABS: Amorphous Mod (0-Heavy); Bacteria Few /hpf; Squamous Epithelial Cells Rare /hpf (Few); White Blood Cells, Urine 0-2 /hpf (0-5)
[2023-04-08 15:49] LABS: Influenza A, PCR NEGATIVE (NEGATIVE); Influenza B, PCR NEGATIVE (NEGATIVE); Resp Syncytial Virus, PCR NEGATIVE (NEGATIVE); SARS-Cov-2 (COVID-19) PCR, MMC NEGATIVE (NEGATIVE)
[2023-04-09 05:29] LABS: BASOPHILS ABSOLUTE AUTO 0.02 K/mm3 (0.00-0.23); BASOPHILS PERCENT AUTO 0 % (0-2); EOSINOPHILS ABSOLUTE AUTO 0.01 K/mm3 (0.00-0.68); EOSINOPHILS PERCENT AUTO 0 % (0-6); Hematocrit 37.8 % (33.0-51.0); Hemoglobin 12.1 g/dL (11.5-16.0); IMMATURE GRAN ABSOLUTE AUTO 0.07 K/mm3 (0.00-0.10); IMMATURE GRAN PERCENT AUTO 0 % (0-1); LYMPHOCYTES ABSOLUTE AUTO 1.72 K/mm3 (0.84-5.20); LYMPHOCYTES PERCENT AUTO 10 % (21-46); MONOCYTES ABSOLUTE AUTO 1.81 K/mm3 (0.16-1.47); MONOCYTES PERCENT AUTO 11 % (4-13); Mean Corpuscular HGB 25.2 pg (26.0-34.0); Mean Corpuscular Volume 79 fL (80-100); Mean Platelet Volume 12.2 fL (9.1-12.4); NEUTROPHILS ABSOLUTE AUTO 13.54 K/mm3 (1.96-9.15); NEUTROPHILS PERCENT AUTO 79 % (41-73); Platelet Count 228 K/mm3 (150-400); RDW Coefficient Variation 14.9 % (11.7-14.2); RDW Standard Deviation 42.3 fL (35.1-46.3); Red Blood Cell Count 4.81 M/mm3 (3.80-5.20); White Blood Cell Count 17.17 K/mm3 (4.00-11.30)
[2023-04-09 05:56] LABS: Albumin, Blood 2.7 g/dL (3.4-5.0); Albumin/Globulin Ratio 0.8 (0.8-1.8); Bilirubin, Total 0.5 mg/dL (0.1-1.0); Bun/Creatinine Ratio 33.8 (12.0-20.0); Calcium, Blood 8.8 mg/dL (8.5-10.1); Creatinine, Blood 0.95 mg/dL (0.40-1.00); Globulin, Blood 3.3 g/dL (2.2-4.0); Magnesium, Blood 1.7 mg/dL (1.6-2.4)
--- NOTE | 2023-04-09 06:21 | NUR ---
NOC SHIFT SUMMARY: NEW ADMIT LAST NIGHT. INCREASED CONFUSION AT HOME, JUST NOT FEELING HERSELF. DAUGHTER BROUGHT HER IN. LEFT GREAT TOE HAS AN AVULSED NAIL. MD AWARE. CONTINUE ON ROCEPHIN. LOOSE BM OVERNIGHT. PUREWICK IN PLACE.
[2023-04-09 07:38] VITALS: BP 178/66
[2023-04-09 09:45] VITALS: BP 103/42
--- NOTE | 2023-04-09 10:21 | NUR ---
PT'S DAUGHTER, ORESTES CALLED FOR AN UPDATE. UPDATE GIVEN. PT'S DAUGHTER STATES THAT SHE WANTS TO BE INCLUDED IN ALL DISCHARGE DISCUSSIONS. [phone]
[2023-04-09] MEDS ORDERED: OXYCODONE-ACET1 EAC3 PO (15:12)
[2023-04-09 16:58] VITALS: BP 152/68
--- NOTE | 2023-04-09 18:46 | NUR ---
SHIFT SUMMARY PT AXO, PLEASANT AND COOPERATIVE WITH CARE. PT WAS VERY TIRED AND SLURRING SPEECH, NAP ENCOURAGED AND COMMUNICATION IMPROVED AFTER. PT TURNED Q2 AND ATTENDS CHANGED PRN. PT HEAVY URINE INCONTINENCE. PT MEDICATED FOR PAIN PER EMAR. ANTIBIOTIC OINTMENT APPLIED TO L GREAT TOE THIS SHIFT. PT AFEBRILE WITH AFTERNOON VS. BED IN LOW POSITION, CALL LIGHT WITHIN REACH. PT'S DAUGHTER AND GRANDDAUGHTER CALLED FOR UPDATE BUT CALL WAS DROPPED.
[2023-04-09 19:28] VITALS: BP 140/58
[2023-04-10 05:37] VITALS: BP 154/68
--- NOTE | 2023-04-10 06:09 | NUR ---
NOC SHIFT SUMMARY: POSSIBLE SNF PLACEMENT. PT. LIVES WITH DAUGHTER. NO C/O PAIN. BEDREST. INCONTINENT OF BOWEL AND BLADDER. ROCEPHIN FOR PNA. LEFT GREAT TOENAIL COMING OFF (DRESSING INTACT). HEEL PROTECTORS.
[2023-04-10 07:15] VITALS: BP 149/73
[2023-04-10 07:25] LABS: BASOPHILS ABSOLUTE AUTO 0.01 K/mm3 (0.00-0.23); BASOPHILS PERCENT AUTO 0 % (0-2); EOSINOPHILS ABSOLUTE AUTO 0.06 K/mm3 (0.00-0.68); EOSINOPHILS PERCENT AUTO 1 % (0-6); Hematocrit 34.3 % (33.0-51.0); Hemoglobin 11.5 g/dL (11.5-16.0); IMMATURE GRAN ABSOLUTE AUTO 0.01 K/mm3 (0.00-0.10); IMMATURE GRAN PERCENT AUTO 0 % (0-1); LYMPHOCYTES ABSOLUTE AUTO 1.98 K/mm3 (0.84-5.20); LYMPHOCYTES PERCENT AUTO 22 % (21-46); MONOCYTES ABSOLUTE AUTO 0.98 K/mm3 (0.16-1.47); MONOCYTES PERCENT AUTO 11 % (4-13); Mean Corpuscular HGB Conc 33.5 g/dL (31.5-36.5); Mean Corpuscular Volume 77 fL (80-100); Mean Platelet Volume 11.5 fL (9.1-12.4); NEUTROPHILS ABSOLUTE AUTO 5.95 K/mm3 (1.96-9.15); NEUTROPHILS PERCENT AUTO 66 % (41-73); Platelet Count 274 K/mm3 (150-400); RDW Coefficient Variation 14.6 % (11.7-14.2); RDW Standard Deviation 41.4 fL (35.1-46.3); Red Blood Cell Count 4.43 M/mm3 (3.80-5.20); White Blood Cell Count 8.99 K/mm3 (4.00-11.30)
[2023-04-10 08:32] LABS: Albumin, Blood 2.3 g/dL (3.4-5.0); Albumin/Globulin Ratio 0.7 (0.8-1.8); Bilirubin, Total 0.4 mg/dL (0.1-1.0); Bun/Creatinine Ratio 34.3 (12.0-20.0); Calcium, Blood 8.2 mg/dL (8.5-10.1); Creatinine, Blood 0.96 mg/dL (0.40-1.00); Globulin, Blood 3.1 g/dL (2.2-4.0); Potassium, Blood 3.5 mmol/L (3.5-5.5); Total Protein, Blood 5.4 g/dL (6.4-8.2)
--- NOTE | 2023-04-10 12:46 | NUR ---
MD CALL DR STARKEY CALLED AND NOTIFIED THAT MS CARREON HAS REFUSED HER ELOQUIS THIS AM AND LAST NIGHT AND THAT SHE SAID SHE IS NORMALLY ON SYNTHROID 0.175MCG PO DAILY. TELEPHONE ORDER FOR SYNTHROID 0.15MCG SYNTHROID PO DAILY, READ BACK DONE AND ORDER ENTERED.
--- NOTE | 2023-04-10 16:25 | NUR ---
SHIFT SUMMARY MS CARREON IS ORIENTATED X4, APPROPRIATE CONVERSATION. SHE SAID SHE FEELS VERY WEAK. UP TO THE CHAIR TODAY WITH O.T., RECOMMENDED 2 PERSON ASSISTANCE. BACK IN BED NOW AND SLEEPING. CONSTANT DRIBBLING INCONTINENCE, DREAD AREA RED. PURE WICK PLACED TO PROTECT HER SKIN. NEUROPATHY RIGHT FOOT, WHOLE ICE PULLER TO TOUCH. LEFT TOES HAVE SORES, PHOTO PLACED IN CHART. HEEL PROTECTORS ON AND TURNING SIDE TO SIDE ENCOURAGED AND ASSISTED. PLAN S.N.F. POST DISCHARGE. BED LOW, CALL LIGHT IN REACH.
[2023-04-10 17:26] VITALS: BP 177/85
[2023-04-10 19:04] VITALS: BP 129/59
[2023-04-10 19:18] VITALS: BP 137/63
[2023-04-10 19:43] VITALS: BP 134/68
[2023-04-11 05:04] VITALS: BP 176/91
--- NOTE | 2023-04-11 05:21 | NUR ---
NOC SHIFT SUMMARY: PLACEMENT TO BE DETERMINED. NO C/O PAIN. VERY PLEASANT. CEFTRIAXONE FOR PNEUMONIA.
[2023-04-11 07:16] VITALS: BP 149/75
--- NOTE | 2023-04-11 08:42 | NUR ---
RN NOTE MS CARREON HAS ONE TIME KDUR 40MEQ ORDERED. SHE TOOK 10MEQ (1/2 TABLET) THEN REFUSED TO TAKE ANY MORE. SHE SAID SHE KNOWS OF PEOPLE WHO HAVE FROM HIGH POTASSIUM LEVEL. EDUCATED ON HER POTASSIUM LEVEL AND WHY IT IS IMPORTANT TO TAKE BUT SHE DECLINED TO TAKE MORE. DR PRIEST NOTIFIED.
--- NOTE | 2023-04-11 14:06 | NUR ---
RN NOTE MS CARREON HAS SAT UP IN THE CHAIR A COUPLE OF TIMES THIS SHIFT. SHE IS TRANSFERING WITH 1 PERSON ASSISTANCE UP TO THE CHAIR, SEEMS STRONGER THAN YESTERDAY. SHE DENIES PAIN OR SOB. ORIENTATED, APPROPRIATE CONVERSATION. IN CHAIR WITH CHAIR ALARM SET, CALL LIGHT IN REACH.
[2023-04-11 14:53] VITALS: BP 137/69
--- NOTE | 2023-04-11 15:13 | NUR ---
SHIFT SUMMARY MS CARREON WAS TRANSFERING WELL WITH 1 PERSON THIS MORNING BUT AFTER HER SHOWER AND SITTING OUT IN THE CHAIR FOR A WHILE SHE WAS A VERY HEAVY 2 PERSON TRANSFER. GAIT BELT WAS USED, SHE WAS UNABLE TO STAND AND HOLD HER OWN WEIGHT, RATHER WAS LEANING AND OFF BALANCE. PURE WICK IN PLACE PER PT PREFERENCE SHE SAID SHE HAS CONSTANT DRIBBLING INCONTINENCE OF URINE. TURNED OFF HER BUTTOCKS FOR PRESSURE RELIEF. SCD ON. BED LOW, BED ALARM ON AND CALL LIGHT IN REACH.
[2023-04-11 17:07] VITALS: BP 150/81
[2023-04-11 20:05] VITALS: BP 150/74
--- NOTE | 2023-04-12 04:44 | NUR ---
SHIFT SUMMARY 87 YR F ADMITTED ON 04/09/23 FOR PNA. FULL CODE. NO ACUTE CHANGES THIS SHIFT. PT AMBULATED IN THE HALLWAY W/ ASSISTANCE OF A EMERGENCY DEPARTMENT AIDE. NO C/O PAIN OR DISCOMFORT THIS SHIFT. SHE REFUSED HER ELEQUIS AND STATED THAT SHE NO LONGER WANTS TO TAKE IT AND THAT SHE DOESN'T WANT TO TAKE A "BUNCH OF MEDICATIONS". SHE IS A&O X 4 AND IS VERY PLEASANT AND COOPERATIVE W/ CARE.
[2023-04-12 05:51] LABS: Bun/Creatinine Ratio 32.7 (12.0-20.0); Calcium, Blood 8.4 mg/dL (8.5-10.1); Creatinine, Blood 0.73 mg/dL (0.40-1.00); Potassium, Blood 3.5 mmol/L (3.5-5.5)
[2023-04-12 07:27] VITALS: BP 138/77
--- NOTE | 2023-04-12 11:23 | NUR ---
RN NOTE LEFT FOOT WOUND CLEANSED AND REDRESSED. PHOTOGRAPH PLACED IN CHART. MS CARREON IS KEEPING LEFT LEG ELEVATED AND RESTED.
--- NOTE | 2023-04-12 14:47 | NUR ---
RN NOTE MS CARREON IS OX4. SHE HAS BEEN TIRED TODAY. SHE SAT UP IN THE CHAIR FOR BREAKFAST, 1 PERSON ASSISTANCE BACK TO BED WITH GAIT BELT AND WALKER. SHE WAS ABLE TO STAND AND MOVE WITH MOSTLY VERBAL CUES TODAY. SHE TOOK ALL HER 0900 MEDICATIONS THIS MORNING. CALL LIGHT IN REACH, BED ALARM AND CHAIR ALARM IN USE.
[2023-04-12 15:19] VITALS: BP 153/76
--- NOTE | 2023-04-12 16:20 | NUR ---
SHIFT SUMMARY NO CHANGES FROM RN NOTE 1447HRS.
[2023-04-12 20:47] VITALS: BP 142/67
[2023-04-13 03:13] VITALS: BP 159/66
--- NOTE | 2023-04-13 05:36 | NUR ---
SHIFT SUMMARY 87 YR F ADMITTED ON 04/09/23 FOR PNEUMONIA. FULL CODE. NO ACUTE CHANGES THIS SHIFT. PT AGREED TO TAKING HER ELEQUIS THIS SHIFT AND STATED THAT SHE HASN'T HAD ANY BLEEDING IN A FEW DAYS SO SHE WILL START TAKING HER MEDS AGAIN. SHE WAS UP IN THE CHAIR AT BEGINNING OF SHIFT AND APPEARED TO BE A&O X 4. AFTER GOING TO BED SHE WOKE UP AT APPROX 0500 AND APPEARED TO BE CONFUSED BEFORE FALLING BACK TO SLEEP.
[2023-04-13 07:39] VITALS: BP 187/82
[2023-04-13 09:01] LABS: Bun/Creatinine Ratio 24.5 (12.0-20.0); Calcium, Blood 8.8 mg/dL (8.5-10.1); Creatinine, Blood 0.73 mg/dL (0.40-1.00); Potassium, Blood 3.5 mmol/L (3.5-5.5)
[2023-04-13 11:49] LABS: SARS-Cov-2 (COVID-19) PCR, MMC NEGATIVE (NEGATIVE)
[2023-04-13] MEDS ORDERED: DOCU100 PO (16:02)
[2023-04-13] MEDS ORDERED: DULCOLAX400 MG/5 M PO (16:03)
[2023-04-13] MEDS ORDERED: SPIR25 PO (16:03)
--- NOTE | 2023-04-13 16:30 | NUR ---
DISCHARGE: PT D/C @1655 WITH [facility] TRANSPORT TO [facility]. IV IN LAC REMOVED AND WRAPPED W/O COMPLICATIONS. BELONGINGS PACKED FOR PT ALONG WITH PT PERSONAL WALKER. PT REQUESTED TO BE WEIGHED PRIOR TO D/C WITH A WEIGHT OF 156.6. REPORT CALLED TO [facility] @4096. PUREWICK CONTAINER EMPTIED WITH AN AMOUNT OF 400CC. MEDICAL FLOOR NUMBER PROVIDED TO FACILITY IF ANY FOLLOW-UP QUESTIONS ARISE.
== END 2023-04-13 16:55 | DRG 871 ==
LOC: ER 12:44 → MEDS 19:47 → ER 21:13 → MEDS 21:24
PROVIDERS: Internal Medicine; Student in an Organized Health Care Education/Training Program; ADMIT Family Medicine
DX: A41.9 Sepsis, unspecified organism (principal); J18.9 Pneumonia, unspecified organism; I48.91 Unspecified atrial fibrillation; E03.9 Hypothyroidism, unspecified; R53.81 Other malaise; Z11.52 Encounter for screening for COVID-19; I11.0 Hypertensive heart disease with heart failure; I50.9 Heart failure, unspecified; R47.81 Slurred speech; S91.202A Unspecified open wound of left great toe with damage to nail, initial encounter; E83.42 Hypomagnesemia; E78.5 Hyperlipidemia, unspecified; E55.9 Vitamin D deficiency, unspecified; G62.9 Polyneuropathy, unspecified; B42.9 Sporotrichosis, unspecified; S30.1XXA Contusion of abdominal wall, initial encounter; Z95.0 Presence of cardiac pacemaker; Z79.01 Long term (current) use of anticoagulants
CPT/HCPCS: 0241U; 36415; 70450; 71045; 76857; 80048; 80053; 81001; 82947; 83605; 83735; 83880; 84439; 84443; 84484; 85025; 93005; 93010; 96361; 96365; 96367; 96368; 96375; 96376; 97161; 97166; 97530; 97535; 99285-25; A9270; G0378; J0456; J0696; J1940; J3475; J7030; J7050; P9612; U0002

== ENCOUNTER → 2023-05-01 | Outpatient (CLI) | payer MEDICARE, OTHER ==
[~2023-05-01] MED LIST changes: +DOCU100 PO; +DULCOLAX400 MG/5 M PO; +OXYCODONE-ACET1 EAC3 PO; +SPIR25 PO
== END ==
LOC: LAB SHORT 13:12 → LAB 13:12
DX: R30.0 Dysuria (principal)
CPT/HCPCS: 87086

== ENCOUNTER → 2023-05-25 | Outpatient (CLI) | payer MEDICARE, OTHER | END | disposition home or self-care (01) | LOC: LAB 17:45 → LAB SHORT 17:45 | DX: R35.0 Frequency of micturition (principal) | CPT/HCPCS: 87077; 87086; 87186 ==

== ENCOUNTER 2023-06-02 19:16 | Emergency (ER) | payer MEDICARE, OTHER ==
[~2023-06-02] VITALS: Ht 172.7 cm; Wt 66.2 kg
[2023-06-02 19:50] LABS: BASOPHILS ABSOLUTE AUTO 0.03 K/mm3 (0.00-0.23); BASOPHILS PERCENT AUTO 0 % (0-2); EOSINOPHILS ABSOLUTE AUTO 0.35 K/mm3 (0.00-0.68); EOSINOPHILS PERCENT AUTO 4 % (0-6); Hematocrit 37.2 % (33.0-51.0); Hemoglobin 12.1 g/dL (11.5-16.0); IMMATURE GRAN ABSOLUTE AUTO 0.06 K/mm3 (0.00-0.10); IMMATURE GRAN PERCENT AUTO 1 % (0-1); LYMPHOCYTES ABSOLUTE AUTO 1.84 K/mm3 (0.84-5.20); LYMPHOCYTES PERCENT AUTO 19 % (21-46); MONOCYTES ABSOLUTE AUTO 0.78 K/mm3 (0.16-1.47); MONOCYTES PERCENT AUTO 8 % (4-13); Mean Corpuscular HGB 26.1 pg (26.0-34.0); Mean Corpuscular HGB Conc 32.5 g/dL (31.5-36.5); Mean Corpuscular Volume 80 fL (80-100); Mean Platelet Volume 10.8 fL (9.1-12.4); NEUTROPHILS ABSOLUTE AUTO 6.53 K/mm3 (1.96-9.15); NEUTROPHILS PERCENT AUTO 68 % (41-73); Platelet Count 326 K/mm3 (150-400); RDW Coefficient Variation 20.7 % (11.7-14.2); RDW Standard Deviation 59.4 fL (35.1-46.3); Red Blood Cell Count 4.63 M/mm3 (3.80-5.20); White Blood Cell Count 9.59 K/mm3 (4.00-11.30)
[2023-06-02 20:06] LABS: International Normalized Ratio 1.03; Prothrombin Time Results 10.8 Sec (9.7-11.5)
[2023-06-02 20:22] LABS: Albumin, Blood 3.4 g/dL (3.4-5.0); Albumin/Globulin Ratio 1.1 (0.8-1.8); Bilirubin, Total 0.4 mg/dL (0.1-1.0); Bun/Creatinine Ratio 28.7 (12.0-20.0); Creatinine, Blood 1.29 mg/dL (0.40-1.00); Total Protein, Blood 6.4 g/dL (6.4-8.2)
[2023-06-02] MEDS ORDERED: OXAYDO5 M1 PO (21:25)
[2023-06-02 21:30] VITALS: BP 140/89
== END 2023-06-02 21:41 | disposition home or self-care (01) ==
LOC: ER 19:16
PROVIDERS: Student in an Organized Health Care Education/Training Program
DX: M25.551 Pain in right hip (principal); M25.561 Pain in right knee; I48.91 Unspecified atrial fibrillation; I11.0 Hypertensive heart disease with heart failure; I50.9 Heart failure, unspecified; E03.9 Hypothyroidism, unspecified; Z79.890 Hormone replacement therapy; Z79.899 Other long term (current) drug therapy; Z79.01 Long term (current) use of anticoagulants; Z95.0 Presence of cardiac pacemaker; W18.30XA Fall on same level, unspecified, initial encounter
CPT/HCPCS: 73502; 73560-RT; 80053; 85025; 85610; 85730; 93005; 93010; 99284-25; A9270

== ENCOUNTER → 2023-06-11 | Outpatient (CLI) | payer MEDICARE, OTHER ==
[~2023-06-11] MED LIST changes: +OXAYDO5 M1 PO
== END ==
LOC: LAB SHORT 09:48 → LAB 09:48
DX: R30.0 Dysuria (principal)
CPT/HCPCS: 87077; 87086; 87186

== ENCOUNTER → 2023-06-25 | Outpatient (CLI) | payer MEDICARE, OTHER | LOC: LAB SHORT 12:18 → LAB 12:18 | DX: R30.0 Dysuria (principal) | CPT/HCPCS: 87086 ==

== ENCOUNTER → 2023-07-17 | Outpatient (CLI) | payer MEDICARE, OTHER | END | disposition home or self-care (01) | LOC: LAB 12:29 → LAB SHORT 12:29 | DX: R30.0 Dysuria (principal) | CPT/HCPCS: 87077; 87086; 87186 ==